=== PATIENT | male | born 1945 | race Caucasian/White ===

== ENCOUNTER 2019-01-14 13:54 | Outpatient (CLI) | payer MEDICARE, BC, SELFPAY ==
--- NOTE | 2019-01-14 13:29 | DI.RAD_ITS ---
SYMPTOMS/DIAGNOSIS: KNEE PAIN LEFT KNEE: Medial femoral tibial joint space narrowing, articular sclerosis and periarticular hypertrophic spurring are demonstrated and hypertrophic changes are identified involving the patella. There may be a small joint effusion. SUMMARY: Severe DJD left knee. RIGHT KNEE: Medial femoral tibial joint space narrowing is identified. There is articular sclerosis and periarticular hypertrophic spurring. Also severe DJD involving the patellofemoral joint is noted. SUMMARY: Findings consistent with severe DJD.
== END 2019-01-14 14:14 ==
PROVIDERS: PCP Student in an Organized Health Care Education/Training Program; Referring Provider Student in an Organized Health Care Education/Training Program; Visit Provider Student in an Organized Health Care Education/Training Program
DX: M25.561 Pain in right knee (principal); M25.562 Pain in left knee; M17.11 Unilateral primary osteoarthritis, right knee; M25.462 Effusion, left knee; M17.12 Unilateral primary osteoarthritis, left knee; M77.12 Lateral epicondylitis, left elbow
CPT/HCPCS: 20610; 73562; 99214; J1040; L3908

== ENCOUNTER 2019-06-25 09:38 | Outpatient (CLI) | payer MEDICARE, BC, SELFPAY | END 2019-06-25 09:58 | PROVIDERS: PCP Student in an Organized Health Care Education/Training Program; Visit Provider Internal Medicine Cardiovascular Disease | DX: R06.02 Shortness of breath (principal); I10 Essential (primary) hypertension; E11.9 Type 2 diabetes mellitus without complications; Z79.84 Long term (current) use of oral hypoglycemic drugs | CPT/HCPCS: 99202; 93005; 93010; 99213 ==

== ENCOUNTER 2020-03-04 21:31 | Outpatient (REF) | payer MEDICARE, BC, SELFPAY ==
[2020-03-04 19:58] LABS: COMMENT (LAB VIEW ONLY) 15.15 mg/dL; Microalb ug/mg Crea 98.3 ug/mg Cr
== END 2020-03-04 21:51 ==
LOC: LBN 21:31
PROVIDERS: PCP Student in an Organized Health Care Education/Training Program; Visit Provider Student in an Organized Health Care Education/Training Program
DX: E11.49 Type 2 diabetes mellitus with other diabetic neurological complication (principal)
CPT/HCPCS: 82043; 82570

== ENCOUNTER 2020-03-09 02:43 | Outpatient (CLI) | payer MEDICARE, BC, SELFPAY ==
[2020-03-09 10:06] LABS: HCT 43.4 % (40.0-50.0); HGB 14.6 g/dL (13.5-17.5); MCH 30.9 pg (27.0-33.0); MCHC 33.6 % (32.0-36.0); MCV 91.9 fL (80-95); MPV 9.8 fL (8.0-11.0); Platelet Count 167 10^3/uL (130-400); RBC 4.72 10^6/uL (4.36-5.78); RDW 13.2 % (11.8-14.1); RDW-SD 45.3 fL; WBC 5.38 10^3/uL (4.4-10.8)
[2020-03-09 10:35] LABS: ALT 70 U/L (16-63); AST 56 U/L (15-37); Albumin 4.2 g/dL (3.4-5.0); Alkaline Phosphatase 42 U/L (46-116); Anion Gap 7.1 mmol/L (3-11); BUN 18 mg/dL (7-18); Bilirubin, Total 0.9 mg/dL (0.2-1.0); CO2 28.9 mmol/L (21.0-32.0); CREATININE 1.07 mg/dL (0.70-1.30); Calcium 9.3 mg/dL (8.5-10.1); Calculated LDL 69 mg/dL (<100); Chloride 101 mmol/L (98-107); Cholesterol 124 mg/dL (<200); Glucose 152 mg/dL (74-106); HDL Cholesterol 35 mg/dL (40-60); Potassium 3.6 mmol/L (3.5-5.1); Sodium 137 mmol/L (136-145); Triglyceride 102 mg/dL (<150)
[2020-03-09 10:51] LABS: Total Protein 7.8 g/dL (6.4-8.2)
== END 2020-03-09 03:03 ==
PROVIDERS: PCP Student in an Organized Health Care Education/Training Program; Visit Provider Student in an Organized Health Care Education/Training Program
DX: E11.49 Type 2 diabetes mellitus with other diabetic neurological complication (principal); I10 Essential (primary) hypertension
CPT/HCPCS: 36415; 80053; 80061; 85027

== ENCOUNTER → 2020-03-18 09:06 | Outpatient (BNVA) | payer MEDICARE, BC, SELFPAY | PROVIDERS: PCP Student in an Organized Health Care Education/Training Program; Referring Provider Student in an Organized Health Care Education/Training Program; Visit Provider Student in an Organized Health Care Education/Training Program | DX: M17.11 Unilateral primary osteoarthritis, right knee (principal); M17.12 Unilateral primary osteoarthritis, left knee; E11.9 Type 2 diabetes mellitus without complications | CPT/HCPCS: 20610; 99213; J1040 ==

== ENCOUNTER → 2020-06-21 13:33 | Outpatient (BNVA) | payer MEDICARE, BC, SELFPAY | PROVIDERS: PCP Student in an Organized Health Care Education/Training Program; Referring Provider Student in an Organized Health Care Education/Training Program; Visit Provider Internal Medicine Cardiovascular Disease | DX: G47.30 Sleep apnea, unspecified (principal); E11.49 Type 2 diabetes mellitus with other diabetic neurological complication; I10 Essential (primary) hypertension; Z79.4 Long term (current) use of insulin | CPT/HCPCS: 99214 ==

== ENCOUNTER 2021-09-27 03:16 | Outpatient (CLI) | payer MEDICARE, BC, SELFPAY | END 2021-09-27 03:17 | disposition home or self-care (01) | LOC: LBO 03:16 | PROVIDERS: PCP Student in an Organized Health Care Education/Training Program; Visit Provider Student in an Organized Health Care Education/Training Program ==

== ENCOUNTER → 2021-10-26 14:37 | Outpatient (CLI) | payer MEDICARE, BC, SELFPAY ==
--- NOTE | 2021-10-26 08:30 | DI.US_ITS ---
Exam(s) US LOWER EXTREMITY VENOUS LT EXAM: US LOWER EXTREMITY VENOUS LT CLINICAL HISTORY: left leg pain, swelling, post sedentary M79.605 PAIN LEFT LEG. TECHNIQUE: Ultrasound performed using standard protocol. COMPARISON: US ABDOMEN ULTRASOUND (P) from 05/20/2017 FINDINGS: Duplex venous ultrasound was performed according to the usual protocol. The deep veins are freely com pressible throughout and there is normal flow augmentation with manual calf compression. 2D and Doppl er evaluation are unremarkable. Note is made of a fluid collection laterally at the knee adjacent to post surgical scar, fluid collec tion measures roughly 6.7 x 1.5 x 1.6 cm. Findings are nonspecific but may represent postoperative s eroma or hematoma. IMPRESSION: No evidence of deep venous thrombosis of the lower extremity. DATA REPOSITORY:
== END ==
PROVIDERS: PCP Student in an Organized Health Care Education/Training Program; Visit Provider Student in an Organized Health Care Education/Training Program
DX: M79.605 Pain in left leg (principal); R22.42 Localized swelling, mass and lump, left lower limb
CPT/HCPCS: 93971

== ENCOUNTER 2021-11-20 17:31 | Outpatient (REF) | payer MEDICARE, BC, SELFPAY ==
[2021-11-20 18:37] LABS: Abs Immature Grans 0.05 10^3/uL (0.0-0.06); Absolute Basophil Count 0.09 10^3/uL (0.0-0.2); Absolute Eosinophil Count 0.84 10^3/uL (0.0-0.7); Absolute Lymphocyte Count 2.15 10^3/uL (1.2-3.4); Absolute Monocyte Count 0.61 10^3/uL (0.1-0.8); Absolute Neutrophil Count 4.99 10^3/uL (1.2-6.7); Eosinophils % 9.6; HCT 31.8 % (40.0-50.0); HGB 9.8 g/dL (13.5-17.5); Immature Grans % 0.6; Lymphocytes % 24.6; MCH 27.4 pg (27.0-33.0); MCHC 30.8 % (32.0-36.0); MCV 89 fL (80-95); MPV 8.8 fL (8.0-11.0); Neutrophils % 57.2; Platelet Count 325 10^3/uL (130-400); RBC 3.58 10^6/uL (4.36-5.78); RDW 14.4 % (11.8-14.1); RDW-SD 46.9 fL; WBC 8.73 10^3/uL (4.4-10.8)
[2021-11-20 19:23] LABS: ALT 30 U/L (16-63); AST 22 U/L (15-37); Albumin 3.3 g/dL (3.4-5.0); Alkaline Phosphatase 70 U/L (46-116); Anion Gap 11.2 mmol/L (3-11); BUN 18 mg/dL (7-18); Bilirubin, Total 0.4 mg/dL (0.2-1.0); C-Reactive Protein 2.83 mg/dL (0.0-0.3); CO2 26.8 mmol/L (21.0-32.0); CREATININE 1.1 mg/dL (0.70-1.30); Calcium 9.2 mg/dL (8.5-10.1); Chloride 104 mmol/L (98-107); Glucose 125 mg/dL (74-106); Potassium 3.6 mmol/L (3.5-5.1); Sodium 142 mmol/L (136-145); Total Protein 7.7 g/dL (6.4-8.2)
[2021-11-24 00:12] LABS: Lab Add On Test DONE
[2021-11-24 00:23] LABS: Iron 35 ug/dL (65-175); Total Iron Binding Capacity 236 ug/dL (250-450)
[2021-11-24 00:36] LABS: Ferritin 81 ng/mL (26-388)
== END 2021-11-20 17:32 | disposition home or self-care (01) ==
LOC: LBN 17:31
PROVIDERS: PCP Student in an Organized Health Care Education/Training Program; Visit Provider Student in an Organized Health Care Education/Training Program
DX: Z79.2 Long term (current) use of antibiotics (principal); T84.54XD Infection and inflammatory reaction due to internal left knee prosthesis, subsequent encounter; Z96.652 Presence of left artificial knee joint; D64.9 Anemia, unspecified
CPT/HCPCS: 80053; 82728; 83540; 83550; 85025; 86140

== ENCOUNTER 2021-11-28 16:49 | Outpatient (REF) | payer MEDICARE, BC, SELFPAY ==
[2021-11-28 13:23] LABS: Abs Immature Grans 0.05 10^3/uL (0.0-0.06); Absolute Basophil Count 0.12 10^3/uL (0.0-0.2); Absolute Eosinophil Count 1.32 10^3/uL (0.0-0.7); Absolute Lymphocyte Count 2.06 10^3/uL (1.2-3.4); Absolute Neutrophil Count 5.35 10^3/uL (1.2-6.7); Basophils % 1.3; Eosinophils % 13.8; HCT 33.7 % (40.0-50.0); HGB 10.3 g/dL (13.5-17.5); Immature Grans % 0.5; Lymphocytes % 21.5; MCHC 30.6 % (32.0-36.0); MCV 88 fL (80-95); MPV 9.1 fL (8.0-11.0); Monocytes % 7.3; Neutrophils % 55.6; Platelet Count 295 10^3/uL (130-400); RBC 3.82 10^6/uL (4.36-5.78); RDW 15.3 % (11.8-14.1); RDW-SD 49.6 fL
[2021-11-28 13:43] LABS: ALT 26 U/L (16-63); AST 24 U/L (15-37); Albumin 3.6 g/dL (3.4-5.0); Alkaline Phosphatase 75 U/L (46-116); Anion Gap 11.8 mmol/L (3-11); BUN 16 mg/dL (7-18); Bilirubin, Total 0.5 mg/dL (0.2-1.0); C-Reactive Protein 0.87 mg/dL (0.0-0.3); CO2 26.2 mmol/L (21.0-32.0); CREATININE 0.9 mg/dL (0.70-1.30); Calcium 8.9 mg/dL (8.5-10.1); Chloride 103 mmol/L (98-107); Glucose 105 mg/dL (74-106); Potassium 3.5 mmol/L (3.5-5.1); Sodium 141 mmol/L (136-145); Total Protein 7.7 g/dL (6.4-8.2)
== END 2021-11-28 16:50 | disposition home or self-care (01) ==
LOC: LBN 16:49
PROVIDERS: Surgery; PCP Student in an Organized Health Care Education/Training Program; Visit Provider Student in an Organized Health Care Education/Training Program
DX: T84.54XD Infection and inflammatory reaction due to internal left knee prosthesis, subsequent encounter (principal); Z79.2 Long term (current) use of antibiotics; Z96.652 Presence of left artificial knee joint
CPT/HCPCS: 80053; 85025; 86140

== ENCOUNTER 2021-12-11 14:04 | Outpatient (REF) | payer MEDICARE, BC, SELFPAY ==
[2021-12-11 15:31] LABS: Abs Immature Grans 0.05 10^3/uL (0.0-0.06); HCT 32.1 % (40.0-50.0); HGB 9.9 g/dL (13.5-17.5); MCHC 30.8 % (32.0-36.0); MCV 88 fL (80-95); MPV 9.3 fL (8.0-11.0); Platelet Count 240 10^3/uL (130-400); RBC 3.66 10^6/uL (4.36-5.78); RDW 15.6 % (11.8-14.1); RDW-SD 49.5 fL; WBC 9.83 10^3/uL (4.4-10.8)
[2021-12-11 16:24] LABS: ALT 23 U/L (16-63); AST 24 U/L (15-37); Albumin 3.6 g/dL (3.4-5.0); Alkaline Phosphatase 71 U/L (46-116); Anion Gap 10.6 mmol/L (3-11); BUN 13 mg/dL (7-18); Bilirubin, Total 0.6 mg/dL (0.2-1.0); C-Reactive Protein 0.66 mg/dL (0.0-0.3); CO2 26.4 mmol/L (21.0-32.0); CREATININE 0.8 mg/dL (0.70-1.30); Calcium 9.1 mg/dL (8.5-10.1); Chloride 102 mmol/L (98-107); Glucose 132 mg/dL (74-106); Potassium 3.8 mmol/L (3.5-5.1); Sodium 139 mmol/L (136-145); Total Protein 7.6 g/dL (6.4-8.2)
[2021-12-11 16:32] LABS: Absolute Eosinophil Count 2.75 10^3/uL (0.0-0.7); Absolute Lymphocyte Count 1.67 10^3/uL (1.2-3.4); Absolute Monocyte Count 0.49 10^3/uL (0.1-0.8); Absolute Neutrophil Count 4.72 10^3/uL (1.2-6.7); Diff Comment Manual Differential
[2021-12-11 16:33] LABS: Polychromasia Present
== END 2021-12-11 14:05 | disposition home or self-care (01) ==
LOC: LBN 14:04
PROVIDERS: PCP Student in an Organized Health Care Education/Training Program; Visit Provider Student in an Organized Health Care Education/Training Program
DX: T84.54XD Infection and inflammatory reaction due to internal left knee prosthesis, subsequent encounter (principal); B96.89 Other specified bacterial agents as the cause of diseases classified elsewhere; Z96.652 Presence of left artificial knee joint
CPT/HCPCS: 80053; 85025; 86140

== ENCOUNTER 2021-12-18 16:19 | Outpatient (REF) | payer MEDICARE, BC, SELFPAY ==
[2021-12-18 19:44] LABS: Abs Immature Grans 0.06 10^3/uL (0.0-0.06); Absolute Basophil Count 0.14 10^3/uL (0.0-0.2); Absolute Eosinophil Count 2.01 10^3/uL (0.0-0.7); Absolute Lymphocyte Count 2.35 10^3/uL (1.2-3.4); Absolute Monocyte Count 0.77 10^3/uL (0.1-0.8); Absolute Neutrophil Count 4.81 10^3/uL (1.2-6.7); Basophils % 1.4; Eosinophils % 19.8; HGB 10.4 g/dL (13.5-17.5); Immature Grans % 0.6; Lymphocytes % 23.2; MCH 26.6 pg (27.0-33.0); MCHC 29.7 % (32.0-36.0); MCV 90 fL (80-95); MPV 9.5 fL (8.0-11.0); Monocytes % 7.6; Neutrophils % 47.4; Platelet Count 260 10^3/uL (130-400); RBC 3.91 10^6/uL (4.36-5.78); RDW 15.9 % (11.8-14.1); RDW-SD 51.9 fL; WBC 10.14 10^3/uL (4.4-10.8)
[2021-12-18 19:56] LABS: ALT 25 U/L (16-63); AST 27 U/L (15-37); Albumin 3.9 g/dL (3.4-5.0); Alkaline Phosphatase 70 U/L (46-116); BUN 21 mg/dL (7-18); Bilirubin, Total 0.5 mg/dL (0.2-1.0); C-Reactive Protein 0.29 mg/dL (0.0-0.3); Calcium 9.5 mg/dL (8.5-10.1); Chloride 101 mmol/L (98-107); Glucose 160 mg/dL (74-106); Potassium 3.9 mmol/L (3.5-5.1); Sodium 137 mmol/L (136-145); Total Protein 7.9 g/dL (6.4-8.2)
[2021-12-18 20:14] LABS: Diff Comment Agrees w/ Instrument; Hypochromasia 1+; Polychromasia Present
== END 2021-12-18 16:20 | disposition home or self-care (01) ==
LOC: LBN 16:19
PROVIDERS: PCP Student in an Organized Health Care Education/Training Program; Visit Provider Surgery
DX: T84.54XD Infection and inflammatory reaction due to internal left knee prosthesis, subsequent encounter (principal); B96.89 Other specified bacterial agents as the cause of diseases classified elsewhere; Z96.652 Presence of left artificial knee joint
CPT/HCPCS: 80053; 85025; 86140

== ENCOUNTER 2021-12-25 16:05 | Outpatient (REF) | payer MEDICARE, BC, SELFPAY ==
[2021-12-25 17:14] LABS: Abs Immature Grans 0.04 10^3/uL (0.0-0.06); Absolute Basophil Count 0.09 10^3/uL (0.0-0.2); Absolute Eosinophil Count 1.33 10^3/uL (0.0-0.7); Absolute Lymphocyte Count 1.57 10^3/uL (1.2-3.4); Absolute Monocyte Count 0.63 10^3/uL (0.1-0.8); Absolute Neutrophil Count 4.11 10^3/uL (1.2-6.7); Basophils % 1.2; Eosinophils % 17.1; HCT 34.9 % (40.0-50.0); HGB 10.6 g/dL (13.5-17.5); Immature Grans % 0.5; Lymphocytes % 20.2; MCH 27.1 pg (27.0-33.0); MCHC 30.4 % (32.0-36.0); MCV 89 fL (80-95); MPV 10.1 fL (8.0-11.0); Monocytes % 8.1; Neutrophils % 52.9; Platelet Count 253 10^3/uL (130-400); RBC 3.91 10^6/uL (4.36-5.78); RDW 15.8 % (11.8-14.1); RDW-SD 51.8 fL; WBC 7.77 10^3/uL (4.4-10.8)
[2021-12-25 17:44] LABS: ALT 24 U/L (16-63); AST 25 U/L (15-37); Albumin 3.8 g/dL (3.4-5.0); Alkaline Phosphatase 65 U/L (46-116); BUN 20 mg/dL (7-18); Bilirubin, Total 0.4 mg/dL (0.2-1.0); C-Reactive Protein 0.19 mg/dL (0.0-0.3); Calcium 9.4 mg/dL (8.5-10.1); Chloride 103 mmol/L (98-107); Glucose 179 mg/dL (74-106); Potassium 4.1 mmol/L (3.5-5.1); Sodium 139 mmol/L (136-145); Total Protein 7.8 g/dL (6.4-8.2)
== END 2021-12-25 16:06 | disposition home or self-care (01) ==
LOC: LBN 16:05
PROVIDERS: PCP Student in an Organized Health Care Education/Training Program; Visit Provider Student in an Organized Health Care Education/Training Program
DX: T84.59XD Infection and inflammatory reaction due to other internal joint prosthesis, subsequent encounter (principal); Z79.2 Long term (current) use of antibiotics; Z96.652 Presence of left artificial knee joint
CPT/HCPCS: 80053; 85025; 86140

== ENCOUNTER 2022-01-01 15:57 | Outpatient (REF) | payer MEDICARE, BC, SELFPAY ==
[2022-01-01 16:59] LABS: Abs Immature Grans 0.01 10^3/uL (0.0-0.06); Absolute Basophil Count 0.08 10^3/uL (0.0-0.2); Absolute Eosinophil Count 1.53 10^3/uL (0.0-0.7); Absolute Lymphocyte Count 1.61 10^3/uL (1.2-3.4); Absolute Monocyte Count 0.61 10^3/uL (0.1-0.8); Absolute Neutrophil Count 3.69 10^3/uL (1.2-6.7); Basophils % 1.1; Eosinophils % 20.3; HCT 35.7 % (40.0-50.0); HGB 10.7 g/dL (13.5-17.5); Immature Grans % 0.1; Lymphocytes % 21.4; MCH 26.2 pg (27.0-33.0); MCV 88 fL (80-95); MPV 9.4 fL (8.0-11.0); Monocytes % 8.1; Platelet Count 238 10^3/uL (130-400); RBC 4.08 10^6/uL (4.36-5.78); RDW 15.6 % (11.8-14.1); RDW-SD 50.4 fL; WBC 7.53 10^3/uL (4.4-10.8)
[2022-01-01 17:34] LABS: ALT 32 U/L (16-63); AST 32 U/L (15-37); Alkaline Phosphatase 66 U/L (46-116); Anion Gap 12.5 mmol/L (3-11); BUN 16 mg/dL (7-18); Bilirubin, Total 0.5 mg/dL (0.2-1.0); C-Reactive Protein 0.18 mg/dL (0.0-0.3); CO2 23.5 mmol/L (21.0-32.0); CREATININE 1.1 mg/dL (0.70-1.30); Calcium 9.2 mg/dL (8.5-10.1); Chloride 102 mmol/L (98-107); Glucose 198 mg/dL (74-106); Potassium 3.5 mmol/L (3.5-5.1); Sodium 138 mmol/L (136-145); Total Protein 8.1 g/dL (6.4-8.2)
== END 2022-01-01 15:58 | disposition home or self-care (01) ==
LOC: LBN 15:57
PROVIDERS: PCP Student in an Organized Health Care Education/Training Program; Visit Provider Surgery
DX: T84.54XD Infection and inflammatory reaction due to internal left knee prosthesis, subsequent encounter (principal); B96.89 Other specified bacterial agents as the cause of diseases classified elsewhere; E11.42 Type 2 diabetes mellitus with diabetic polyneuropathy; Z96.652 Presence of left artificial knee joint
CPT/HCPCS: 80053; 85025; 86140

== ENCOUNTER 2022-01-08 11:35 | Outpatient (REF) | payer MEDICARE, BC, SELFPAY ==
[2022-01-08 13:22] LABS: Abs Immature Grans 0.01 10^3/uL (0.0-0.06); Absolute Basophil Count 0.06 10^3/uL (0.0-0.2); Absolute Eosinophil Count 0.67 10^3/uL (0.0-0.7); Absolute Lymphocyte Count 1.52 10^3/uL (1.2-3.4); Absolute Monocyte Count 0.57 10^3/uL (0.1-0.8); Absolute Neutrophil Count 3.06 10^3/uL (1.2-6.7); Eosinophils % 11.4; HCT 35.7 % (40.0-50.0); HGB 10.6 g/dL (13.5-17.5); Immature Grans % 0.2; Lymphocytes % 25.8; MCH 26.2 pg (27.0-33.0); MCHC 29.7 % (32.0-36.0); MCV 88 fL (80-95); MPV 9.3 fL (8.0-11.0); Monocytes % 9.7; Neutrophils % 51.9; Platelet Count 218 10^3/uL (130-400); RBC 4.05 10^6/uL (4.36-5.78); RDW 15.5 % (11.8-14.1); WBC 5.89 10^3/uL (4.4-10.8)
[2022-01-08 13:42] LABS: ALT 32 U/L (16-63); AST 33 U/L (15-37); Alkaline Phosphatase 64 U/L (46-116); Anion Gap 12.3 mmol/L (3-11); BUN 13 mg/dL (7-18); Bilirubin, Total 0.6 mg/dL (0.2-1.0); C-Reactive Protein 0.19 mg/dL (0.0-0.3); CO2 25.7 mmol/L (21.0-32.0); CREATININE 0.9 mg/dL (0.70-1.30); Calcium 9.1 mg/dL (8.5-10.1); Chloride 101 mmol/L (98-107); Glucose 139 mg/dL (74-106); Potassium 3.8 mmol/L (3.5-5.1); Sodium 139 mmol/L (136-145); Total Protein 7.8 g/dL (6.4-8.2)
== END 2022-01-08 11:36 | disposition home or self-care (01) ==
LOC: LBN 11:35
PROVIDERS: PCP Student in an Organized Health Care Education/Training Program; Visit Provider Student in an Organized Health Care Education/Training Program
DX: T84.54XD Infection and inflammatory reaction due to internal left knee prosthesis, subsequent encounter (principal); Z79.2 Long term (current) use of antibiotics; B96.89 Other specified bacterial agents as the cause of diseases classified elsewhere
CPT/HCPCS: 80053; 85025; 86140

== ENCOUNTER 2022-04-13 09:24 | Outpatient (REF) | payer MEDICARE, BC, SELFPAY ==
[2022-04-13 11:30] LABS: Vancomycin, Trough 22.7 ug/mL (10.0-20.0)
== END 2022-04-13 09:25 | disposition home or self-care (01) ==
LOC: LBN 09:24
PROVIDERS: PCP Student in an Organized Health Care Education/Training Program; Visit Provider Student in an Organized Health Care Education/Training Program
DX: B99.9 Unspecified infectious disease (principal); D64.9 Anemia, unspecified; T84.54XA Infection and inflammatory reaction due to internal left knee prosthesis, initial encounter
CPT/HCPCS: 80202

== ENCOUNTER 2022-04-16 10:15 | Outpatient (REF) | payer MEDICARE, BC, SELFPAY ==
[2022-04-16 11:06] LABS: Abs Immature Grans 0.04 10^3/uL (0.0-0.06); Absolute Basophil Count 0.11 10^3/uL (0.0-0.2); Absolute Eosinophil Count 0.49 10^3/uL (0.0-0.7); Absolute Lymphocyte Count 1.52 10^3/uL (1.2-3.4); Absolute Monocyte Count 0.48 10^3/uL (0.1-0.8); Absolute Neutrophil Count 5.34 10^3/uL (1.2-6.7); Basophils % 1.4; Eosinophils % 6.1; HCT 29.9 % (40.0-50.0); HGB 8.9 g/dL (13.5-17.5); Immature Grans % 0.5; MCH 25.4 pg (27.0-33.0); MCHC 29.8 % (32.0-36.0); MCV 85 fL (80-95); MPV 9.2 fL (8.0-11.0); Platelet Count 419 10^3/uL (130-400); RBC 3.51 10^6/uL (4.36-5.78); RDW 16.3 % (11.8-14.1); RDW-SD 50.7 fL; WBC 7.98 10^3/uL (4.4-10.8)
[2022-04-16 11:23] LABS: ALT 24 U/L (16-63); AST 24 U/L (15-37); Albumin 3.3 g/dL (3.4-5.0); Alkaline Phosphatase 61 U/L (46-116); BUN 16 mg/dL (7-18); Bilirubin, Total 0.5 mg/dL (0.2-1.0); CREATININE 1.1 mg/dL (0.70-1.30); Calcium 9.2 mg/dL (8.5-10.1); Chloride 103 mmol/L (98-107); Estimated GFR 69.57 (mL/min/1.73m2); Glucose 142 mg/dL (74-106); Potassium 3.7 mmol/L (3.5-5.1); Sodium 139 mmol/L (136-145); Total Protein 7.4 g/dL (6.4-8.2); Vancomycin, Trough 16.8 ug/mL (10.0-20.0)
[2022-04-16 11:36] LABS: C-Reactive Protein 0.81 mg/dL (0.0-0.3)
== END 2022-04-16 10:16 | disposition home or self-care (01) ==
LOC: LBN 10:15
PROVIDERS: PCP Student in an Organized Health Care Education/Training Program; Visit Provider Orthopaedic Surgery
DX: T84.54XA Infection and inflammatory reaction due to internal left knee prosthesis, initial encounter (principal)
CPT/HCPCS: 80053; 80202; 85025; 86140

== ENCOUNTER 2022-04-23 08:38 | Outpatient (REF) | payer MEDICARE, BC, SELFPAY ==
[2022-04-23 11:01] LABS: Abs Immature Grans 0.02 10^3/uL (0.0-0.06); Absolute Basophil Count 0.08 10^3/uL (0.0-0.2); Absolute Eosinophil Count 0.66 10^3/uL (0.0-0.7); Absolute Lymphocyte Count 1.34 10^3/uL (1.2-3.4); Absolute Monocyte Count 0.58 10^3/uL (0.1-0.8); Absolute Neutrophil Count 3.09 10^3/uL (1.2-6.7); Basophils % 1.4; Eosinophils % 11.4; HCT 29.2 % (40.0-50.0); HGB 8.4 g/dL (13.5-17.5); Immature Grans % 0.3; Lymphocytes % 23.2; MCH 24.6 pg (27.0-33.0); MCHC 28.8 % (32.0-36.0); MCV 86 fL (80-95); MPV 9.2 fL (8.0-11.0); Monocytes % 10.1; Neutrophils % 53.6; RBC 3.41 10^6/uL (4.36-5.78); RDW 16.1 % (11.8-14.1); RDW-SD 50.5 fL; WBC 5.77 10^3/uL (4.4-10.8)
[2022-04-23 11:19] LABS: ALT 32 U/L (16-63); AST 26 U/L (15-37); Albumin 3.5 g/dL (3.4-5.0); Alkaline Phosphatase 59 U/L (46-116); Anion Gap 7.8 mmol/L (3-11); BUN 21 mg/dL (7-18); Bilirubin, Total 0.6 mg/dL (0.2-1.0); C-Reactive Protein 0.21 mg/dL (0.0-0.3); CO2 28.2 mmol/L (21.0-32.0); Calcium 9.1 mg/dL (8.5-10.1); Chloride 105 mmol/L (98-107); Glucose 147 mg/dL (74-106); Potassium 3.7 mmol/L (3.5-5.1); Sodium 141 mmol/L (136-145); Total Protein 7.5 g/dL (6.4-8.2)
[2022-04-23 11:21] LABS: Diff Comment Diff Reviewed
[2022-04-23 11:22] LABS: Hypochromasia 2+; Polychromasia Present
[2022-04-23 11:31] LABS: Vancomycin, Trough 15.6 ug/mL (10.0-20.0)
== END 2022-04-23 08:39 | disposition home or self-care (01) ==
LOC: LBN 08:38
PROVIDERS: PCP Student in an Organized Health Care Education/Training Program; Visit Provider Orthopaedic Surgery
DX: T84.54XD Infection and inflammatory reaction due to internal left knee prosthesis, subsequent encounter (principal); Z79.2 Long term (current) use of antibiotics; Z51.81 Encounter for therapeutic drug level monitoring; Z96.652 Presence of left artificial knee joint
CPT/HCPCS: 80053; 80202; 85025; 86140

== ENCOUNTER 2022-04-30 15:44 | Outpatient (REF) | payer MEDICARE, BC, SELFPAY ==
[2022-04-30 09:21] LABS: Abs Immature Grans 0.01 10^3/uL (0.0-0.06); Absolute Basophil Count 0.05 10^3/uL (0.0-0.2); Absolute Eosinophil Count 0.78 10^3/uL (0.0-0.7); Absolute Lymphocyte Count 1.33 10^3/uL (1.2-3.4); Absolute Monocyte Count 0.56 10^3/uL (0.1-0.8); Absolute Neutrophil Count 2.45 10^3/uL (1.2-6.7); Eosinophils % 15.1; HCT 29.6 % (40.0-50.0); HGB 8.6 g/dL (13.5-17.5); Immature Grans % 0.2; Lymphocytes % 25.7; MCH 24.6 pg (27.0-33.0); MCHC 29.1 % (32.0-36.0); MCV 85 fL (80-95); MPV 9.6 fL (8.0-11.0); Monocytes % 10.8; Neutrophils % 47.2; Platelet Count 198 10^3/uL (130-400); RBC 3.49 10^6/uL (4.36-5.78); RDW 15.7 % (11.8-14.1); RDW-SD 48.3 fL; WBC 5.18 10^3/uL (4.4-10.8)
[2022-04-30 09:34] LABS: Diff Comment Diff Reviewed; Hypochromasia 1+; Polychromasia Present
[2022-04-30 09:35] LABS: Poikilocytes 1+
[2022-04-30 10:14] LABS: ALT 26 U/L (16-63); AST 31 U/L (15-37); Albumin 3.6 g/dL (3.4-5.0); Alkaline Phosphatase 62 U/L (46-116); Anion Gap 9.1 mmol/L (3-11); BUN 18 mg/dL (7-18); Bilirubin, Total 0.6 mg/dL (0.2-1.0); C-Reactive Protein 0.18 mg/dL (0.0-0.3); CO2 25.9 mmol/L (21.0-32.0); Chloride 104 mmol/L (98-107); Glucose 148 mg/dL (74-106); Potassium 3.5 mmol/L (3.5-5.1); Sodium 139 mmol/L (136-145); Total Protein 7.8 g/dL (6.4-8.2); Vancomycin, Trough 12.1 ug/mL (10.0-20.0)
== END 2022-04-30 15:45 | disposition home or self-care (01) ==
LOC: LBN 15:44
PROVIDERS: PCP Student in an Organized Health Care Education/Training Program; Visit Provider Internal Medicine Infectious Disease
DX: T84.54XD Infection and inflammatory reaction due to internal left knee prosthesis, subsequent encounter (principal); Z79.2 Long term (current) use of antibiotics; Z51.81 Encounter for therapeutic drug level monitoring; Z96.652 Presence of left artificial knee joint
CPT/HCPCS: 80053; 80202; 85025; 86140

== ENCOUNTER 2022-05-07 09:17 | Outpatient (REF) | payer MEDICARE, BC, SELFPAY ==
[2022-05-07 10:13] LABS: Abs Immature Grans 0.03 10^3/uL (0.0-0.06); Absolute Basophil Count 0.07 10^3/uL (0.0-0.2); Absolute Eosinophil Count 0.63 10^3/uL (0.0-0.7); Absolute Lymphocyte Count 1.29 10^3/uL (1.2-3.4); Absolute Monocyte Count 0.56 10^3/uL (0.1-0.8); Absolute Neutrophil Count 3.31 10^3/uL (1.2-6.7); Basophils % 1.2; Eosinophils % 10.7; HCT 29.3 % (40.0-50.0); HGB 8.6 g/dL (13.5-17.5); Immature Grans % 0.5; Lymphocytes % 21.9; MCH 24.9 pg (27.0-33.0); MCHC 29.4 % (32.0-36.0); MCV 85 fL (80-95); MPV 10.1 fL (8.0-11.0); Monocytes % 9.5; Neutrophils % 56.2; Platelet Count 234 10^3/uL (130-400); RBC 3.45 10^6/uL (4.36-5.78); RDW 15.6 % (11.8-14.1); RDW-SD 47.8 fL; WBC 5.89 10^3/uL (4.4-10.8)
[2022-05-07 10:27] LABS: ALT 26 U/L (16-63); AST 29 U/L (15-37); Albumin 3.7 g/dL (3.4-5.0); Alkaline Phosphatase 71 U/L (46-116); Anion Gap 11.3 mmol/L (3-11); BUN 22 mg/dL (7-18); Bilirubin, Total 0.6 mg/dL (0.2-1.0); CO2 24.7 mmol/L (21.0-32.0); CREATININE 1.1 mg/dL (0.70-1.30); Chloride 104 mmol/L (98-107); Estimated GFR 69.57 (mL/min/1.73m2); Glucose 209 mg/dL (74-106); Potassium 3.4 mmol/L (3.5-5.1); Sodium 140 mmol/L (136-145); Total Protein 7.8 g/dL (6.4-8.2); Vancomycin, Trough 14.6 ug/mL (10.0-20.0)
[2022-05-07 10:36] LABS: C-Reactive Protein 0.23 mg/dL (0.0-0.3)
[2022-05-08 19:18] LABS: Lab Add On Test DONE
[2022-05-08 19:31] LABS: Iron 24 ug/dL (65-175)
[2022-05-08 19:37] LABS: Hemoglobin A1C 7.1 % (<5.7)
[2022-05-08 19:44] LABS: Ferritin 26 ng/mL (26-388); Magnesium 1.6 mg/dL (1.8-2.4)
[2022-05-10 19:12] LABS: Lab Add On Test DONE
[2022-05-10 19:30] LABS: Total Iron Binding Capacity 328 ug/dL (250-450)
== END 2022-05-07 09:18 | disposition home or self-care (01) ==
LOC: LBN 09:17
PROVIDERS: Internal Medicine Infectious Disease; PCP Student in an Organized Health Care Education/Training Program; Visit Provider Student in an Organized Health Care Education/Training Program
DX: T84.54XD Infection and inflammatory reaction due to internal left knee prosthesis, subsequent encounter (principal); B95.7 Other staphylococcus as the cause of diseases classified elsewhere; Z79.2 Long term (current) use of antibiotics; D64.9 Anemia, unspecified
CPT/HCPCS: 80053; 80202; 82728; 83036; 83540; 83550; 83735; 85025; 86140

== ENCOUNTER 2022-05-14 08:57 | Outpatient (REF) | payer MEDICARE, BC, SELFPAY ==
[2022-05-14 10:00] LABS: Abs Immature Grans 0.02 10^3/uL (0.0-0.06); Absolute Basophil Count 0.07 10^3/uL (0.0-0.2); Absolute Eosinophil Count 0.48 10^3/uL (0.0-0.7); Absolute Monocyte Count 0.54 10^3/uL (0.1-0.8); Absolute Neutrophil Count 3.28 10^3/uL (1.2-6.7); Basophils % 1.3; Eosinophils % 8.6; HCT 28.7 % (40.0-50.0); HGB 8.4 g/dL (13.5-17.5); Immature Grans % 0.4; Lymphocytes % 21.5; MCH 24.5 pg (27.0-33.0); MCHC 29.3 % (32.0-36.0); MCV 84 fL (80-95); MPV 9.7 fL (8.0-11.0); Monocytes % 9.7; Neutrophils % 58.5; Platelet Count 298 10^3/uL (130-400); RBC 3.43 10^6/uL (4.36-5.78); RDW 15.7 % (11.8-14.1); RDW-SD 47.8 fL; WBC 5.59 10^3/uL (4.4-10.8)
[2022-05-14 10:33] LABS: ALT 25 U/L (16-63); AST 27 U/L (15-37); Albumin 3.7 g/dL (3.4-5.0); Alkaline Phosphatase 69 U/L (46-116); Anion Gap 10.8 mmol/L (3-11); BUN 19 mg/dL (7-18); Bilirubin, Total 0.8 mg/dL (0.2-1.0); CO2 26.2 mmol/L (21.0-32.0); Chloride 103 mmol/L (98-107); Glucose 206 mg/dL (74-106); Potassium 3.3 mmol/L (3.5-5.1); Sodium 140 mmol/L (136-145); Total Protein 7.8 g/dL (6.4-8.2); Vancomycin, Trough 19.6 ug/mL (10.0-20.0)
[2022-05-14 10:46] LABS: C-Reactive Protein 0.47 mg/dL (0.0-0.3)
== END 2022-05-14 08:58 | disposition home or self-care (01) ==
LOC: LBN 08:57
PROVIDERS: PCP Student in an Organized Health Care Education/Training Program; Visit Provider Internal Medicine Infectious Disease
DX: T84.54XD Infection and inflammatory reaction due to internal left knee prosthesis, subsequent encounter (principal); B95.7 Other staphylococcus as the cause of diseases classified elsewhere; Z79.2 Long term (current) use of antibiotics
CPT/HCPCS: 80053; 80202; 85025; 86140

== ENCOUNTER 2022-05-28 02:37 | Outpatient (RCR) | payer MEDICARE, BC, SELFPAY ==
[2022-05-22] MEDS: IRON SUCROSE COMPLEX 200 MG in Normal Saline 100 ML 440 MG IVPB (09:06)
[2022-05-22] MEDS: Normal Saline Flush 10 ML SYR IVP (09:07)
[2022-05-28] MEDS: Normal Saline Flush 10 ML SYR IVP (09:24)
[2022-05-28] MEDS: IRON SUCROSE COMPLEX 200 MG in Normal Saline 100 ML 440 MG IVPB (09:24)
== END 2022-05-30 23:59 | disposition home or self-care (01) ==
LOC: INF 02:37
PROVIDERS: PCP Student in an Organized Health Care Education/Training Program; Visit Provider Student in an Organized Health Care Education/Training Program
DX: D50.9 Iron deficiency anemia, unspecified
CPT/HCPCS: 96365; J1756

== ENCOUNTER 2022-06-07 13:35 | Outpatient (CLI) | payer MEDICARE, BC, SELFPAY ==
--- NOTE | 2022-06-07 13:30 | RT.EKG_ITS ---
APPROVED REPORT Exam: Resting ECG Reason for Exam: rapid heart rate Patient Location: O HR:87 bpm ECG Measurements Heart Rate 87 AXIS NH 172 P 2 QRSd 92 QRS -10 QT 365 T 39 QTc 439 Conclusion Sinus rhythm...normal P axis, V-rate 50- 99 Normal Electrocardiogram
== END 2022-06-07 13:36 | disposition home or self-care (01) ==
LOC: DI.KIM 13:36
PROVIDERS: PCP Student in an Organized Health Care Education/Training Program; Visit Provider Student in an Organized Health Care Education/Training Program
DX: R00.0 Tachycardia, unspecified (principal)
CPT/HCPCS: 93010

== ENCOUNTER 2022-06-18 02:40 | Outpatient (RCR) | payer MEDICARE, BC, SELFPAY ==
[2022-06-04] MEDS: Normal Saline Flush 10 ML SYR IVP (11:21)
[2022-06-04] MEDS: IRON SUCROSE COMPLEX 200 MG in Normal Saline 100 ML 440 MG IVPB (11:24)
[2022-06-11] MEDS: IRON SUCROSE COMPLEX 200 MG in Normal Saline 100 ML 440 MG IVPB (09:07)
[2022-06-11] MEDS: Normal Saline Flush 10 ML SYR IVP (09:07)
[2022-06-11 09:34] LABS: Anion Gap 12.1 mmol/L (3-11); BUN 20 mg/dL (7-18); CO2 26.9 mmol/L (21.0-32.0); CREATININE 1.2 mg/dL (0.70-1.30); Calcium 9.9 mg/dL (8.5-10.1); Chloride 99 mmol/L (98-107); Estimated GFR 62.67 (mL/min/1.73m2); Glucose 123 mg/dL (74-106); Magnesium 1.6 mg/dL (1.8-2.4); Potassium 3.6 mmol/L (3.5-5.1); Sodium 138 mmol/L (136-145)
[2022-06-18] MEDS: Normal Saline Flush 10 ML SYR IVP (08:50)
[2022-06-18] MEDS: IRON SUCROSE COMPLEX 200 MG in Normal Saline 100 ML 440 MG IVPB (08:57)
== END 2022-06-30 23:59 | disposition home or self-care (01) ==
LOC: INF 02:40
PROVIDERS: PCP Student in an Organized Health Care Education/Training Program; Visit Provider Student in an Organized Health Care Education/Training Program
DX: E87.6 Hypokalemia (principal); E87.8 Other disorders of electrolyte and fluid balance, not elsewhere classified; D50.9 Iron deficiency anemia, unspecified
CPT/HCPCS: 36415; 80048; 96365; 83735; J1756

== ENCOUNTER 2022-07-30 02:51 | Outpatient (CLI) | payer MEDICARE, BC, SELFPAY ==
[2022-07-30 11:49] LABS: Abs Immature Grans 0.02 10^3/uL (0.0-0.06); Absolute Basophil Count 0.05 10^3/uL (0.0-0.2); Absolute Eosinophil Count 0.37 10^3/uL (0.0-0.7); Absolute Lymphocyte Count 2.06 10^3/uL (1.2-3.4); Absolute Neutrophil Count 3.67 10^3/uL (1.2-6.7); Basophils % 0.7; Eosinophils % 5.5; HGB 13.3 g/dL (13.5-17.5); Immature Grans % 0.3; Lymphocytes % 30.4; MCH 26.6 pg (27.0-33.0); MCHC 31.7 % (32.0-36.0); MCV 84 fL (80-95); MPV 8.9 fL (8.0-11.0); Monocytes % 8.9; Neutrophils % 54.2; Platelet Count 233 10^3/uL (130-400); RDW 19.4 % (11.8-14.1); RDW-SD 59.4 fL; WBC 6.77 10^3/uL (4.4-10.8)
[2022-07-30 12:27] LABS: Hemoglobin A1C 6.6 % (<5.7)
[2022-07-30 12:39] LABS: Ferritin 45 ng/mL (26-388); TSH (W/Ref FT4) 3.46 uIU/mL (0.36-3.74)
[2022-07-30 13:14] LABS: Iron 71 ug/dL (65-175); Total Iron Binding Capacity 308 ug/dL (250-450); Transferrin Sat 23 % (20-55)
== END 2022-07-30 02:52 | disposition home or self-care (01) ==
LOC: LBO 02:51
PROVIDERS: PCP Student in an Organized Health Care Education/Training Program; Referring Provider Student in an Organized Health Care Education/Training Program; Visit Provider Student in an Organized Health Care Education/Training Program
DX: D64.9 Anemia, unspecified (principal); E61.1 Iron deficiency; B99.9 Unspecified infectious disease; Z79.2 Long term (current) use of antibiotics; E11.49 Type 2 diabetes mellitus with other diabetic neurological complication; G47.30 Sleep apnea, unspecified; R00.0 Tachycardia, unspecified
CPT/HCPCS: 36415; 82728; 83036; 83540; 83550; 84443; 85025

== ENCOUNTER 2023-04-08 04:58 | Outpatient (CLI) | payer MEDICARE, BC, SELFPAY ==
[2023-04-08 09:02] LABS: HGB 14.2 g/dL (13.5-17.5)
[2023-04-08 09:47] LABS: Hemoglobin A1C 6.4 % (<5.7)
[2023-04-08 09:50] LABS: ALT 38 U/L (16-63); AST 32 U/L (15-37); Alkaline Phosphatase 53 U/L (46-116); Anion Gap 13.1 mmol/L (3-11); BUN 12 mg/dL (7-18); Bilirubin, Total 0.7 mg/dL (0.2-1.0); CO2 25.9 mmol/L (21.0-32.0); Calcium 9.8 mg/dL (8.5-10.1); Calculated LDL 57 mg/dL (<100); Chloride 101 mmol/L (98-107); Cholesterol 123 mg/dL (<200); Estimated GFR 77.52 (mL/min/1.73m2); Glucose 112 mg/dL (74-106); HDL Cholesterol 39 mg/dL (40-60); Iron 81 ug/dL (65-175); Potassium 3.5 mmol/L (3.5-5.1); Sodium 140 mmol/L (136-145); Total Iron Binding Capacity 284 ug/dL (250-450); Total Protein 8.2 g/dL (6.4-8.2); Transferrin Sat 29 % (20-55); Triglyceride 139 mg/dL (<150)
[2023-04-08 10:10] LABS: Vitamin D 25 Total 60.6 ng/mL (30-100)
== END 2023-04-08 04:59 | disposition home or self-care (01) ==
LOC: LBO 04:58
PROVIDERS: PCP Student in an Organized Health Care Education/Training Program; Visit Provider Student in an Organized Health Care Education/Training Program
DX: E11.65 Type 2 diabetes mellitus with hyperglycemia (principal); D64.9 Anemia, unspecified; E11.49 Type 2 diabetes mellitus with other diabetic neurological complication; I10 Essential (primary) hypertension; T84.54XA Infection and inflammatory reaction due to internal left knee prosthesis, initial encounter; Z79.2 Long term (current) use of antibiotics; K90.9 Intestinal malabsorption, unspecified; M89.8X9 Other specified disorders of bone, unspecified site; Z96.659 Presence of unspecified artificial knee joint; E11.42 Type 2 diabetes mellitus with diabetic polyneuropathy
CPT/HCPCS: 36415; 80053; 80061; 82306; 83036; 83540; 83550; 85018

== ENCOUNTER 2023-10-07 04:07 | Outpatient (CLI) | payer MEDICARE, BC, SELFPAY ==
[2023-10-07 10:33] LABS: Abs Immature Grans 0.01 10^3/uL (0.0-0.06); Absolute Basophil Count 0.05 10^3/uL (0.0-0.2); Absolute Eosinophil Count 0.18 10^3/uL (0.0-0.7); Absolute Lymphocyte Count 2.08 10^3/uL (1.2-3.4); Absolute Monocyte Count 0.46 10^3/uL (0.1-0.8); Absolute Neutrophil Count 2.56 10^3/uL (1.2-6.7); Basophils % 0.9; Eosinophils % 3.4; HCT 39.8 % (40.0-50.0); HGB 13.2 g/dL (13.5-17.5); Immature Grans % 0.2; MCH 29.2 pg (27.0-33.0); MCHC 33.2 % (32.0-36.0); MCV 88 fL (80-95); Monocytes % 8.6; Neutrophils % 47.9; Platelet Count 208 10^3/uL (130-400); RBC 4.52 10^6/uL (4.36-5.78); RDW 15.9 % (11.8-14.1); RDW-SD 51.7 fL; WBC 5.34 10^3/uL (4.4-10.8)
[2023-10-07 10:50] LABS: ALT 40 U/L (16-63); AST 34 U/L (15-37); Alkaline Phosphatase 57 U/L (46-116); Anion Gap 11.4 mmol/L (3-11); BUN 18 mg/dL (7-18); Bilirubin, Total 0.8 mg/dL (0.2-1.0); CO2 26.6 mmol/L (21.0-32.0); Calcium 9.2 mg/dL (8.5-10.1); Calculated LDL 76 mg/dL (<100); Chloride 105 mmol/L (98-107); Cholesterol 134 mg/dL (<200); Estimated GFR 77.52 (mL/min/1.73m2); Glucose 118 mg/dL (74-106); HDL Cholesterol 41 mg/dL (40-60); Potassium 3.8 mmol/L (3.5-5.1); Sodium 143 mmol/L (136-145); Total Protein 7.9 g/dL (6.4-8.2); Triglyceride 85 mg/dL (<150)
[2023-10-07 12:08] LABS: Iron 51 ug/dL (65-175); Total Iron Binding Capacity 286 ug/dL (250-450); Transferrin Sat 18 % (20-55)
== END 2023-10-07 04:08 | disposition home or self-care (01) ==
LOC: LBO 04:08
PROVIDERS: PCP Student in an Organized Health Care Education/Training Program; Visit Provider Student in an Organized Health Care Education/Training Program
DX: Z79.2 Long term (current) use of antibiotics; R00.0 Tachycardia, unspecified; I10 Essential (primary) hypertension; E83.40 Disorders of magnesium metabolism, unspecified; E11.9 Type 2 diabetes mellitus without complications; Z13.220 Encounter for screening for lipoid disorders
CPT/HCPCS: 36415; 80053; 80061; 83540; 83550; 85025

== ENCOUNTER 2023-11-04 05:25 | Outpatient (CLI) | payer MEDICARE, BC, SELFPAY ==
[2023-11-04 12:18] LABS: Iron 65 ug/dL (65-175); Total Iron Binding Capacity 283 ug/dL (250-450); Transferrin Sat 23 % (20-55)
== END 2023-11-04 05:26 | disposition home or self-care (01) ==
LOC: LBO 05:25
PROVIDERS: PCP Student in an Organized Health Care Education/Training Program; Referring Provider Student in an Organized Health Care Education/Training Program; Visit Provider Student in an Organized Health Care Education/Training Program
DX: D64.9 Anemia, unspecified (principal)
CPT/HCPCS: 36415; 83540; 83550

== ENCOUNTER 2023-12-17 15:06 | Outpatient (CLI) | payer MEDICARE, BC, SELFPAY ==
--- NOTE | 2023-12-17 10:50 | DI.RAD_ITS ---
Exam(s) XR SHOULDER RT COMPLETE 2+V EXAM: XR SHOULDER RT COMPLETE 2+V CLINICAL HISTORY: RIGHT SHOULDER PAIN. TECHNIQUE: 2D digital imaging was performed. COMPARISON: No exams were available for comparison FINDINGS: 3 views No evidence of fracture or dislocation or abnormal soft tissue calcifications. There are mild degene rative changes in the glenohumeral joint. No osseous lesions IMPRESSION: Mild degenerative changes in glenohumeral joint. DATA REPOSITORY: RADIATION DOSE DELIVERED:
== END 2023-12-17 15:07 | disposition home or self-care (01) ==
LOC: DIORS 15:09
PROVIDERS: PCP Student in an Organized Health Care Education/Training Program; Referring Provider Student in an Organized Health Care Education/Training Program; Visit Provider Student in an Organized Health Care Education/Training Program
DX: M75.101 Unspecified rotator cuff tear or rupture of right shoulder, not specified as traumatic
CPT/HCPCS: 99203; 73030

== ENCOUNTER → 2023-12-31 02:10 | Outpatient (CLI) | payer MEDICARE, BC, SELFPAY ==
--- NOTE | 2023-12-31 08:15 | DI.MRI_ITS ---
Exam(s) MR UPPER JOINT RT WO EXAM: MR UPPER JOINT RT WO CLINICAL HISTORY: R SHOULDER PAIN,rt rotator cuff tear,m75.101. TECHNIQUE: Multiplanar multisequence MRI was performed. COMPARISON: CR XR SHOULDER RT COMPLETE 2+V from 12/17/2023 FINDINGS: BONES: There is no fracture or contusion pattern. JOINTS: There are marked degenerative changes seen at the acromioclavicular joint. There are mild de generative changes also seen at the glenohumeral joint. TENDONS: Supraspinatus: There is a partial tear of the supraspinatus tendon. There is underlying tendinosis. Infraspinatus: Unremarkable. Subscapularis: There is tendinosis of the subscapularis tendon. Teres Minor: Unremarkable. Biceps and [place]: Unremarkable. MUSCLES: Unremarkable. GLENOID LABRUM: There is a thickened middle glenohumeral ligament with decreased size of the anterior superior labrum consistent with a Michael complex. No evidence of a labral tear is seen on this nonc ontrast examination. SOFT TISSUES: Unremarkable. LIGAMENTS: Unremarkable. OTHER: There is fluid seen in the subacromial subdeltoid bursa. IMPRESSION: 1. Torn supraspinatus tendon anteriorly at its insertion site. 2. Marked degenerative changes seen at the acromioclavicular joint. 3. Fluid seen in the subacromial subdeltoid bursa. 4. Tendinosis of the underlying supraspinatus tendon and the subscapularis tendons. DATA REPOSITORY:
== END ==
PROVIDERS: PCP Student in an Organized Health Care Education/Training Program; Visit Provider Student in an Organized Health Care Education/Training Program
DX: M75.101 Unspecified rotator cuff tear or rupture of right shoulder, not specified as traumatic (principal); S46.011A Strain of muscle(s) and tendon(s) of the rotator cuff of right shoulder, initial encounter
CPT/HCPCS: 73221

== ENCOUNTER → 2024-01-14 13:20 | Outpatient (BNVA) | payer MEDICARE, BC, SELFPAY | PROVIDERS: PCP Student in an Organized Health Care Education/Training Program; Referring Provider Student in an Organized Health Care Education/Training Program; Visit Provider Student in an Organized Health Care Education/Training Program | DX: M75.101 Unspecified rotator cuff tear or rupture of right shoulder, not specified as traumatic (principal) | CPT/HCPCS: 99213 ==

== ENCOUNTER 2024-04-20 01:16 | Outpatient (CLI) | payer MEDICARE, BC, SELFPAY ==
--- NOTE | 2024-04-20 07:30 | DI.US_ITS ---
Exam(s) US AAA SCREENING EXAM: US AAA SCREENING CLINICAL HISTORY: screening FOR AAA 2' smoking Hx,Z13.6 COMPARISON: US US LOWER EXTREMITY VENOUS LT from 10/26/2021 FINDINGS: There is no evidence abdominal aortic aneurysm. Maximum diameter of the aorta is 2.2 cm, proximally and there is normal distal tapering demonstrated. Mild arterial megaly of the common iliac arteries both measuring 1.4 cm diameter. IMPRESSION: No evidence of abdominal aortic aneurysm. Mild arteriomegaly of the visualized common iliac arteries is noted. DATA REPOSITORY:
== END 2024-04-20 01:36 ==
LOC: DI 01:16
PROVIDERS: PCP Student in an Organized Health Care Education/Training Program; Visit Provider Student in an Organized Health Care Education/Training Program
DX: Z13.6 Encounter for screening for cardiovascular disorders (principal)
CPT/HCPCS: 76706

== ENCOUNTER 2024-04-20 02:32 | Outpatient (CLI) | payer MEDICARE, BC, SELFPAY ==
[2024-04-20 07:54] LABS: Abs Immature Grans 0.01 10^3/uL (0.0-0.06); Absolute Basophil Count 0.05 10^3/uL (0.0-0.2); Absolute Eosinophil Count 0.46 10^3/uL (0.0-0.7); Absolute Lymphocyte Count 1.76 10^3/uL (1.2-3.4); Absolute Monocyte Count 0.55 10^3/uL (0.1-0.8); Absolute Neutrophil Count 2.54 10^3/uL (1.2-6.7); Basophils % 0.9 %; Eosinophils % 8.6 %; HCT 43.5 % (40.0-50.0); HGB 14.4 g/dL (13.5-17.5); Immature Grans % 0.2 %; Lymphocytes % 32.8 %; MCH 31.1 pg (27.0-33.0); MCHC 33.1 % (32.0-36.0); MCV 94 fL (80-95); MPV 8.6 fL (8.0-11.0); Monocytes % 10.2 %; Neutrophils % 47.3 %; Platelet Count 207 10^3/uL (130-400); RBC 4.63 10^6/uL (4.36-5.78); RDW 13.6 % (11.8-14.1); RDW-SD 46.7 fL; Reticulocyte 1.4 % (0.5-2.4); WBC 5.37 10^3/uL (4.4-10.8)
[2024-04-20 08:43] LABS: ALT 90 U/L (16-63); AST 179 U/L (15-37); Albumin 4.2 g/dL (3.4-5.0); Alkaline Phosphatase 59 U/L (46-116); Anion Gap 10.9 mmol/L (3-11); BUN 19 mg/dL (7-18); Bilirubin, Total 1.62 mg/dL (0.2-1.0); CO2 29.1 mmol/L (21.0-32.0); CREATININE 1.1 mg/dL (0.70-1.30); Calcium 9.7 mg/dL (8.5-10.1); Chloride 102 mmol/L (98-107); Estimated GFR 68.71 (mL/min/1.73m2); Ferritin 35 ng/mL (26-388); Glucose 132 mg/dL (74-106); Potassium 3.6 mmol/L (3.5-5.1); Sodium 142 mmol/L (136-145); Total Protein 8.3 g/dL (6.4-8.2)
[2024-04-20 08:54] LABS: Iron 87 ug/dL (65-175); Total Iron Binding Capacity 298 ug/dL (250-450); Transferrin Sat 29 % (20-55)
[2024-04-20 18:27] LABS: PSA, Screening 1.3 ng/mL (<=6.5)
[2024-04-21 22:10] LABS: Lab Add On Test DONE
[2024-04-21 22:31] LABS: Hemoglobin A1C 5.8 % (<5.7)
== END 2024-04-20 02:33 | disposition home or self-care (01) ==
LOC: LBO 02:32
PROVIDERS: PCP Student in an Organized Health Care Education/Training Program; Referring Provider Student in an Organized Health Care Education/Training Program; Visit Provider Student in an Organized Health Care Education/Training Program
DX: E11.49 Type 2 diabetes mellitus with other diabetic neurological complication (principal); I10 Essential (primary) hypertension; K22.70 Barrett's esophagus without dysplasia; E61.1 Iron deficiency; M75.101 Unspecified rotator cuff tear or rupture of right shoulder, not specified as traumatic; Z12.5 Encounter for screening for malignant neoplasm of prostate
CPT/HCPCS: 36415; 76706; 80053; 84153; 82728; 83036; 83540; 83550; 85025; 85045

== ENCOUNTER 2024-05-18 01:14 | Outpatient (CLI) | payer MEDICARE, BC, SELFPAY ==
--- NOTE | 2024-05-18 06:45 | DI.US_ITS ---
Exam(s) US ABDOMEN LIMITED EXAM: US ABDOMEN LIMITED CLINICAL HISTORY: eval RUQ, biliary tree, liver 2' elev LFT,BILIRUBIN,R74.9,R17 TECHNIQUE: Ultrasound abdomen performed using standard protocol. COMPARISON: US ABDOMEN ULTRASOUND (P) from 05/20/2017 US US AAA SCREENING from 04/20/2024 FINDINGS: There is no ascites evident. LIVER: Liver is again noted be hyperechoic indicating steatosis. There are no discrete focal hepatic lesions identified. GALLBLADDER/BILIARY: There is a 9 millimeter shadowing calculus in the gallbladder again noted, simil ar to previous. There is also a smaller 6 mm polyp. Gallbladder wall is not edematous. The common hepatic duct issomewhat dilated, measuring 9mm at the level of alex hepatis. PANCREAS: There is no evidence of pancreatic mass nor dilatation of the pancreatic duct. RIGHT KIDNEY:No evidence of solid mass, calculus, nor hydronephrosis. Small parapelvic cyst is noted IMPRESSION: 1. There are 2 focal findings in the gallbladder. The larger measures 9 mm and is consistent with a mobile calculus. Smaller 6 mm probable polyp noted. The gallbladder wall is not edematous and ther e is no pericholecystic fluid. However, the common hepatic duct is mildly dilated, measuring 9 mm. Cannot exclude possibility of calculus or other obstructing lesion in lower CBD. This can be further studied with CT or MRI/MRCP. 2. Hepatic steatosis again noted, as was evident on prior ultrasound of 2016. 3. There is no ascites. DATA REPOSITORY:
== END 2024-05-18 01:34 ==
LOC: DI 01:14
PROVIDERS: PCP Student in an Organized Health Care Education/Training Program; Visit Provider Student in an Organized Health Care Education/Training Program
DX: R74.8 Abnormal levels of other serum enzymes (principal); K74.60 Unspecified cirrhosis of liver; Z86.2 Personal history of diseases of the blood and blood-forming organs and certain disorders involving the immune mechanism; I10 Essential (primary) hypertension
CPT/HCPCS: 76705

== ENCOUNTER 2024-07-27 03:19 | Outpatient (CLI) | payer MEDICARE, BC, SELFPAY ==
[2024-07-27 11:38] LABS: INR 1.1 (0.9-1.1)
[2024-07-27 11:57] LABS: ALT 59 U/L (16-63); AST 43 U/L (15-37); Albumin 4.2 g/dL (3.4-5.0); Alkaline Phosphatase 51 U/L (46-116); BUN 14 mg/dL (7-18); Bilirubin, Total 0.85 mg/dL (0.2-1.0); CREATININE 1.2 mg/dL (0.70-1.30); Chloride 103 mmol/L (98-107); Glucose 133 mg/dL (74-106); Sodium 143 mmol/L (136-145); Total Protein 8.1 g/dL (6.4-8.2)
== END 2024-07-27 03:20 | disposition home or self-care (01) ==
LOC: LBO 03:19
PROVIDERS: Student in an Organized Health Care Education/Training Program; PCP Family Medicine; Referring Provider Family Medicine; Visit Provider Family Medicine
DX: R74.8 Abnormal levels of other serum enzymes (principal); R17 Unspecified jaundice; Z86.2 Personal history of diseases of the blood and blood-forming organs and certain disorders involving the immune mechanism; S35.513A Injury of unspecified iliac artery, initial encounter; I10 Essential (primary) hypertension
CPT/HCPCS: 36415; 80053; 85610

== ENCOUNTER 2025-02-18 09:44 | Outpatient (RCR) | payer MEDICARE, BC, SELFPAY ==
--- NOTE | 2025-02-23 14:24 | HOLT_ITS ---
Date of service: 02/23/25 Time of Service: 14:24 Holter Monitor Report Referring Provider:: Carlos Graham Indications:: Palpitations Holter Monitor Note: This is a 48-hour Holter monitor. Rhythm throughout was sinus with an average heart rate of 80. Minimum was 42, maximum 115 There are very rare isolated ventricular ectopic beats There were occasional to frequent atrial premature beats. There were 3 self- limited atrial runs. There was no atrial fibrillation, no high-grade AV block, no pauses greater than 3 seconds Symptoms had no correlation to any dysrhythmia
== END 2025-02-28 23:59 | disposition home or self-care (01) ==
LOC: CARDOPNVT 09:44
PROVIDERS: PCP Family Medicine; Visit Provider Internal Medicine Cardiovascular Disease
DX: R00.2 Palpitations (principal)
CPT/HCPCS: 93227; 93225; 93226

== ENCOUNTER 2025-02-22 04:33 | Outpatient (CLI) | payer MEDICARE, BC, SELFPAY ==
[2025-02-22 16:00] LABS: Anion Gap 12.5 mmol/L (3-11); BUN 17 mg/dL (7-18); CO2 25.5 mmol/L (21.0-32.0); Calcium 9.9 mg/dL (8.5-10.1); Chloride 103 mmol/L (98-107); Estimated GFR 76.56 (mL/min/1.73m2); Glucose 107 mg/dL (74-106); Magnesium 1.8 mg/dL (1.8-2.4); Potassium 3.8 mmol/L (3.5-5.1); Sodium 141 mmol/L (136-145)
== END 2025-02-22 04:34 | disposition home or self-care (01) ==
LOC: LBO 04:33
PROVIDERS: PCP Family Medicine; Visit Provider Family Medicine
DX: I10 Essential (primary) hypertension (principal); R00.2 Palpitations
CPT/HCPCS: 36415; 80048; 83735